=== PATIENT | female | born 1975 | race Caucasian/White ===

== ENCOUNTER 2018-06-23 09:46 | Emergency (ER) | payer OTHER ==
[~2018-06-23] VITALS: Ht 167.6 cm; Wt 93.0 kg
[2018-06-23] MEDS ORDERED: SINGULAIR 10 MG10 M1 PO (09:53)
[2018-06-23] MEDS ORDERED: HYDROXYZINE HCL25 M2 PO (09:54)
[2018-06-23] MEDS ORDERED: IBUPROFEN 600600 M1 PO (11:00)
[2018-06-23 11:19] VITALS: BP 132/99
== END 2018-06-23 11:15 | disposition home or self-care (01) ==
LOC: ER 09:46
DX: S50.02XA Contusion of left elbow, initial encounter (principal); J45.909 Unspecified asthma, uncomplicated; Z98.890 Other specified postprocedural states; Z88.2 Allergy status to sulfonamides; W10.8XXA Fall (on) (from) other stairs and steps, initial encounter; Y93.89 Activity, other specified; Y92.89 Other specified places as the place of occurrence of the external cause; Y99.8 Other external cause status